=== PATIENT | male | born 1990 | race Two or more races ===

== ENCOUNTER → 2024-07-31 | Outpatient (CLI) | payer BC, SELFPAY ==
[2024-07-31 08:55] LABS: Hematocrit 41.8 % (41.0-53.0); Hemoglobin 14.2 g/dL (13.5-16.0)
[2024-07-31 09:13] LABS: Cardiac Risk Estimate 5.2 RATIO (4.0-6.7); Cholesterol 264 mg/dL (132-200); HDL Cholesterol 51 mg/dL (40-60); LDL Cholesterol,Calculated 185 mg/dL (0-130); Triglycerides 142 mg/dL (30-150)
[2024-07-31 09:59] LABS: Ferritin 36 ng/mL (10.5-307.3); Total Iron Binding Capacity 368 mcg/dL (250-425)
[2024-07-31 10:09] LABS: Iron 88 mcg/dL (65-175)
== END | disposition home or self-care (01) ==
LOC: COPL 07:06
PROVIDERS: PCP Family Medicine; Referring Provider Nurse Practitioner Family; Visit Provider Nurse Practitioner Family
DX: E78.5 Hyperlipidemia, unspecified (principal); E61.1 Iron deficiency
CPT/HCPCS: 36415; 80061; 82728; 83540; 83550; 85014; 85018

== ENCOUNTER → 2024-09-13 | Outpatient (CLI) | payer BC, SELFPAY ==
[2024-09-13 09:18] LABS: Cardiac Risk Estimate 5.1 RATIO (4.0-6.7); Cholesterol 234 mg/dL (132-200); HDL Cholesterol 46 mg/dL (40-60); LDL Cholesterol,Calculated 163 mg/dL (0-130); Triglycerides 126 mg/dL (30-150)
== END | disposition home or self-care (01) ==
LOC: COPL 07:18
PROVIDERS: PCP Family Medicine; Referring Provider Internal Medicine Cardiovascular Disease; Visit Provider Internal Medicine Cardiovascular Disease
DX: I20.89 Other forms of angina pectoris (principal); E78.00 Pure hypercholesterolemia, unspecified
CPT/HCPCS: 36415; 80061

== ENCOUNTER → 2025-02-06 | Outpatient (CLI) | payer BC, SELFPAY ==
[2025-02-06 08:56] LABS: C-Reactive Protein < 0.5 mg/dL (0.0-0.9); Cardiac Risk Estimate 5.2 RATIO (4.0-6.7); Cholesterol 256 mg/dL (132-200); HDL Cholesterol 49 mg/dL (40-60); LDL Cholesterol,Calculated 187 mg/dL (0-130); Triglycerides 101 mg/dL (30-150)
[2025-02-12 14:10] LABS: Insulin* 2.6 uIU/mL (< OR = 18.4)
== END | disposition home or self-care (01) ==
PROVIDERS: PCP Family Medicine; Referring Provider Internal Medicine Cardiovascular Disease; Visit Provider Nurse Practitioner Family
DX: I20.89 Other forms of angina pectoris (principal); E78.00 Pure hypercholesterolemia, unspecified; Z82.49 Family history of ischemic heart disease and other diseases of the circulatory system; K20.0 Eosinophilic esophagitis
CPT/HCPCS: 36415; 80061; 83525; 86140

== ENCOUNTER 2025-03-06 08:00 | Outpatient (RCR) | payer BC, SELFPAY ==
--- NOTE | 2025-03-04 08:07 | PTNOTE_ITS ---
PT OP Initial Eval Patient Information Outpatient Physical Therapy Treatment Date: 03/04/25 Visit Reasons: SCIATICA RT SIDE Medical Diagnosis: M54.31 Treatment Dx #1: R LE pain Start of Care: 03/04/25 Date of Onset: 6 months ago Smoking Status Smoking Status: Never smoker Initial Assessment Subjective: Pt is 34 yr old male who c/o R LE pain x6 months. He denies LBP. Increased pain with prolonged sitting >20 mins. He is working at a desk job and sits a lot. PMH: septoplasty Imaging: none Pt goal: for the R LE pain to go away. Objective: Trunk ArOM: ? B SB 50% of normal with pain ? Extension: 80% of full ? Flexion: 10 from floor ? B rotation: 60% with pain to the L ? TTP: moderate R proximal hamstring posteriorly ? Neuro: R SLR: positive Assessment: ? Pt presents with trunk flexion sensitivity and overlying myofascial pain ? and TTP consistent with possible hamstring strain and ? lower lumbar disc bulge(s) with radiculopathy. Pt requires skilled therapy in order to decrease ? pain and improve sitting/standing tolerance and has fair rehab potential. Eval ?followed by HEP printout. Short Term and Protective Signal Operator Goals 1. Ind with HEP ? 2. Improved sitting tolerance to 40 minutes with <=3/10 LBP ? 3. Decreased lower paraspinal TTP from mod to min 4. Improved HH chore tolerance to at least 30 minutes with <=3/10 LBP and no ?increase in LE ssx ? Treatment Plan ?1. Manual therapy ? 2. Therex ? 3. Modalities as indicated, moist heat, ice, estim, mechanical traction Frequency and Duration: 1-2x a week for 12 sessions plus the evaluation Certification Dates: 03/04/25 to 06/02/25 Procedure Charges OP PT Eval Mod Complex 30 minutes: Yes
--- NOTE | 2025-03-06 13:30 | PT.ODAYNRPT ---
PT Outpatient Daily Note OP Daily Note Outpatient Physical Therapy Treatment Date: 03/06/25 Visit Reasons: SCIATICA RT SIDE Subjective: Same as evaluation Objective: See F/S for therex MT: STM R medial HS x7' R adductors MMT: 4-/5 Assessment: Medial HS is moderately TTP with manual therapy and hip adductors are 4-/5. Plan: Continue per POC Length of Time (minutes) of Treatment: 30 Minutes Procedure Charges Therapeutic Exercise 30 minutes: Yes
== END 2025-03-10 23:59 | disposition home or self-care (01) ==
LOC: CPTX 08:00
PROVIDERS: PCP Nurse Practitioner Family; Referring Provider Nurse Practitioner Family; Visit Provider Nurse Practitioner Family
DX: M54.31 Sciatica, right side (principal)
CPT/HCPCS: 97110; 97162

== ENCOUNTER 2025-03-19 08:30 | Outpatient (RCR) | payer BC, SELFPAY ==
--- NOTE | 2025-03-12 08:34 | PT.ODAYNRPT ---
PT Outpatient Daily Note OP Daily Note Outpatient Physical Therapy Treatment Date: 03/12/25 Visit Reasons: SCIATICA RIGHT SIDE Subjective: Pt reported no soreness post last PT session. Pt mentioned if he is doing long car rides he notices that his R LE worsens. Objective: Please see flow sheet for ther ex list. Assessment: Added repeated lumbar extension in prone, pt encouraged to perform for HEP. Plan: Assess response to treatment. Length of Time (minutes) of Treatment: 30 Minutes Procedure Charges Therapeutic Exercise 30 minutes: Yes
--- NOTE | 2025-03-19 09:04 | PT.ODAYNRPT ---
PT Outpatient Daily Note OP Daily Note Outpatient Physical Therapy Treatment Date: 03/19/25 Visit Reasons: SCIATICA RIGHT SIDE Subjective: Pt states he is doing well with no R LE pain; explains he experiences R LE pain with prolonged periods of driving. Objective: See F/S for therex Assessment: Tolerated prone progression well in lying along with extension in standing. Educated on proper lifting mechanics; demo'd understanding with completion of lifting small SB off ground with correct form 5x. Advised and instructed on how to use a small towel to provide lumbar support while driving. Plan: Continue with POC. Length of Time (minutes) of Treatment: 30 Minutes Procedure Charges Therapeutic Exercise 30 minutes: Yes
== END 2025-04-09 23:59 | disposition home or self-care (01) ==
LOC: CPTX 08:30
PROVIDERS: PCP Nurse Practitioner Family; Referring Provider Nurse Practitioner Family; Visit Provider Nurse Practitioner Family
DX: M54.31 Sciatica, right side (principal)
CPT/HCPCS: 97110

== ENCOUNTER → 2025-05-28 | Outpatient (CLI) | payer BC, SELFPAY ==
--- NOTE | 2025-05-28 | XR_ITS ---
EXAMINATION: Sacroiliac joints 3 views TECHNIQUE: AP, RPO, LPO sacroiliac joints 3 views Date and time: May 28, 2025, 1327 hours INDICATION: Sacral pain 2 months. FINDINGS: Normal sacroiliac joints No diastases or erosions Symmetrical sacral foramina IMPRESSION: Normal sacroiliac joints
--- NOTE | 2025-05-28 | XR_ITS ---
EXAMINATION: Lumbar spine 3 views TECHNIQUE: AP lateral: Lateral lower lumbar spine 3 views Date and time: May 28, 2025, 1327 hours INDICATIONS: Low back pain radiating down the legs months FINDINGS: Adequate alignment lumbar vertebral bodies No lumbar fracture Mild disc narrowing posteriorly L5-S1 No spondylolisthesis IMPRESSION: Mild disc narrowing L5-S1 posteriorly
== END | disposition home or self-care (01) ==
LOC: CDIM 11:53
PROVIDERS: PCP Family Medicine; Referring Provider Nurse Practitioner Family; Visit Provider Nurse Practitioner Family
DX: M48.07 Spinal stenosis, lumbosacral region (principal); M51.370 Other intervertebral disc degeneration, lumbosacral region with discogenic back pain only
CPT/HCPCS: 72100; 72202